=== PATIENT | male | born 1945 | race Caucasian/White ===

== ENCOUNTER → 2023-04-20 | Outpatient (CLI) | payer MEDICARE, OTHER, SELFPAY ==
--- NOTE | 2023-04-20 09:38 | CT_ITS ---
STUDY: CT ABDOMEN AND PELVIS WITHOUT CONTRAST REASON FOR EXAM: Male, 77 years old. GROSS HEMATURIA RADIATION DOSAGE (If Supplied By Facility): CTDIvol = ( 14.57 ) mGy, DLP = ( 782.49 ) mGycm TECHNIQUE: Transaxial images were obtained from the dome of the diaphragm to the symphysis pubis without oral contrast, and without intravenous contrast. Sagittal and coronal images were reconstructed. Individualized dose optimization techniques were used for this CT. COMPARISON: None. FINDINGS: The visualized lung bases are unremarkable. Coronary artery calcification. Normal liver. There are surgical clips in the gallbladder fossa consistent with a prior cholecystectomy. There is mild splenomegaly. Normal pancreas. Normal bilateral adrenal glands. Normal right kidney. Normal left kidney. Mild degree of nonspecific bilateral perinephric stranding. Normal visualized stomach. Normal small intestine. There are scattered colonic diverticula consistent with diverticulosis. The appendix is visualized and appears normal. There is scattered atherosclerotic calcification of the abdominal aorta and its major visceral branches, without a demonstrated aneurysm. Normal inferior vena cava. Normal retroperitoneum. Questionable faint polypoid mass in the right lateral wall of the urinary bladder. Endoscopic evaluation is recommended. There is enlargement of the prostate gland. It measures 4.4 cm x 6.9 cm. This causes indentation at the bladder base. There is calcification of the vas deferens. This is usually seen in patients with diabetes. Normal abdominal wall. There are diffuse degenerative changes of the visualized lumbar spine. CT/Abdomen/Pelvis without Cont IMPRESSION: Prostatic enlargement. Findings suggestive of faint polypoid mass arising from the lateral wall of the bladder on the right side. Electronically Signed: Job Luis MD at 10:10 EDT ,
[2023-04-20 09:45] LABS: Anion Gap 3 (5-15); BUN 40 mg/dL (7-18); BUN/Creat Ratio 23.1 RATIO (10-20); Chloride 112 mmol/L (98-107); Creatinine, Serum 1.73 mg/dL (0.70-1.30); EST Glomerular Filtration Rate 41 mL/min (>60); Est Glom Filt Rate - Afr Amer 49 mL/min (>60); Glucose 183 mg/dL (74-106); PSA,Total- Diagnostic 2.67 ng/mL (0.0-4.0); Potassium 4.2 mmol/L (3.5-5.1); Sodium Level 143 mmol/L (136-145)
== END | disposition home or self-care (01) ==
LOC: CT 09:17
PROVIDERS: PCP Preventive Medicine Occupational Medicine; Referring Provider Urology; Visit Provider Urology
DX: R31.0 Gross hematuria (principal)
CPT/HCPCS: 36415; 74176; 80048; 84153

== ENCOUNTER 2023-05-17 10:08 | Day surgery (SDC) | payer MEDICARE, OTHER, SELFPAY ==
[2023-05-10 17:29] LABS: International Normalized Ratio 1.1; Prothrombin Time (Protime)PT. 14.5 SECONDS (11.7-14.9)
[2023-05-10 17:30] LABS: Partial Thromboplast Time 25.9 Seconds (24.1-36.2)
[2023-05-10 17:53] LABS: Hemoglobin A1c 5.8 % (3.8-5.6)
[2023-05-10 18:05] LABS: AST(SGOT) 34 U/L (15-37); Alanine Aminotransfer ALT/SGPT 47 U/L (16-61); Albumin, Serum 3.9 g/dL (3.2-5.0); Alkaline Phosphatase 67 U/L (45-117); Bilirubin, Direct 0.18 mg/dL (0.00-0.30); Globulin 3.1 g/dL (2.2-4.2)
[2023-05-17] VITALS (7 sets, daily range): BP systolic 113–131; BP diastolic 50–62; PULSE 68–77; RESP 16–18; TEMP 36.2–36.9; O2SAT 94–100; BMI 29.0
[2023-05-17] MEDS: Lactated Ringers 1,000 ML 15 ML IV (10:56)
--- NOTE | 2023-05-17 11:08 | PCM.HP.BLA ---
History and Physical Date of Admission: 05/17/23 77 yo male with Gross hematuria just started this past week, he did have a catheter placed during heart surgery which bleed a lot. no h/o prostate, a long time ago PSA was normal. no pain, no h/o bladder cancer, a long time ago had kidney stone. he was on baby aspirin - currently stopped. ALLERGIES: Adhesive tape Mildew Mold Penicillin MEDICATIONS: Allopurinol 100 mg tablet 1 tablet PO Daily Aspirin 81 mg tablet,chewable 1 tablet PO Daily Farxiga 10 mg tablet 1 tablet PO Daily Glimepiride 2 mg tablet 1 tablet PO Daily Icosapent Ethyl 2 PO Daily Losartan Potassium 25 mg tablet 1 tablet PO Daily Magnesium 1 PO Daily Melatonin 1 PO Daily Metoprolol Succinate 25 mg tablet, extended release 24 hr 1 tablet PO Daily Nitroglycerin 0.4 mg tablet, sublingual 1 tablet PO Daily Repatha Sureclick 140 mg/ml pen injector 1 PO every other week Ubiquinol 1 PO Daily Vitamin D3 1 PO Daily PAST SURGICAL HISTORY: Carotid Endarterectomy Cholecystectomy Coronary Artery Bypass Grafting Heart Surgery (Unspecified) Tonsillectomy - 1999 PAST MEDICAL HISTORY: Acute myocardial infarction, unspecified Atherosclerotic heart disease of [place] coronary artery without angina pectoris Benign prostatic hyperplasia with lower urinary tract symptoms Chronic kidney disease, stage 3b Essential (primary) hypertension Gross hematuria Hematuria, unspecified Nocturia Other hyperlipidemia Personal history of urinary calculi Phlebitis and thrombophlebitis of unspecified deep vessels of unspecified lower extremity Right heart failure due to left heart failure Sleep apnea, unspecified Type 2 diabetes mellitus without complications PM Notes: thrombocytopenia Immunizations: None FAMILY HISTORY: Cancer - Runs in Family Diabetes - Runs in Family Heart Disease - Runs in Family SOCIAL HISTORY: Marital Status: Preferred Language: [place]; Ethnicity: Not Or ; Race: White Current Smoking Status: Patient does not smoke anymore. Tobacco Use Assessment Completed: Used Tobacco in last 30 days? Smoking cessation counseling was provided. Does not use smokeless tobacco. Has never drank. Does not use drugs. Does not drink caffeine. Has not had a blood transfusion. REVIEW OF SYSTEMS: Constitutional: Patient denies fever, chills, weight loss, and weight gain. Eyes: Patient reports cataracts. Patient denies blurry vision and glaucoma. Ears, Nose, Mouth, Throat: Patient reports hearing loss, sinus infections, and sleep apnea. Cardiovascular: Patient denies chest pains, swollen ankles, irregular heartbeat, and pacemaker/defib. Respiratory: Patient reports cpap machine. Patient denies shortness of breath, wheezing, and oxygen. Gastrointestinal: Patient denies abdominal pain, diarrhea, constipation, nausea, and vomiting. Genitourinary: Patient reports get up at night to void, blood in the urine, and history of stones. Patient denies frequent urination, urinary retention, urinary incontinence, painful urination, frequent uti's, difficulty starting stream, weak stream/scanty, and bedwetting. Musculoskeletal: Patient reports back pain. Patient denies sore muscles and gout. Integumentary/Skin: Patient denies rash, skin cancer, and chronic itching. Neurological: Patient denies paralysis, stroke/tia, and falling/unsteady. Hematologic/Lymphatic: Patient reports abnormal bleeding. Patient denies blood transfusion, swollen lymph nodes, deep venous thrombosis, and pulmonary embolism. VITAL SIGNS: 04/20/2023 08:36 AM Weight 200 lb / 90.72 kg Height 69 in / 175.26 cm BP 126/74 mmHg BMI 29.5 kg/m? - BMI Counseling was provided. PHYSICAL EXAM: Constitutional: Well-nourished. No physical deformities. Normally developed. Good grooming. Neck: Neck symmetrical, not swollen. Normal tracheal position. Respiratory: No labored breathing, no use of accessory muscles. Cardiovascular: Normal temperature, normal extremity pulses, no swelling, no varicosities. Lymphatic: No enlargement of neck, axillae, groin. Skin: No paleness, no jaundice, no cyanosis. No lesion, no ulcer, no rash. Neurologic / Psychiatric: Oriented to time, oriented to place, oriented to person. No depression, no anxiety, no agitation. Gastrointestinal: No mass, no tenderness, no rigidity, non obese abdomen. Eyes: Normal conjunctivae. Normal eyelids. Ears, Nose, Mouth, and Throat: Left ear no scars, no lesions, no masses. Right ear no scars, no lesions, no masses. Nose no scars, no lesions, no masses. Normal hearing. Normal lips. Musculoskeletal: Normal gait and station of head and neck. Complexity of Data: Source Of History: Patient Lab Test Review: Basic Metabolic Panel (BMP), CBC Records Review: Previous Doctor Records, Previous Hospital Records, Previous Patient Records Urine Test Review: Urinalysis PROCEDURES: Flexible Cystoscopy - 39726 Risks, benefits, and some of the potential complications of the procedure were discussed at length with the patient including infection, bleeding, voiding discomfort, urinary retention, fever, chills, sepsis, and others. All questions were answered. Informed consent was obtained. Antibiotic prophylaxis was given. Sterile technique and intraurethral analgesia were used. Meatus: Normal size. Normal location. Normal condition. Urethra: No strictures. External Sphincter: Normal. Verumontanum: Normal. Prostate: Moderate hyperplasia. Non-obstructing. Bladder Neck: Non-obstructing. Ureteral Orifices: Normal location. Normal size. Normal shape. Effluxed clear urine. Bladder: very blood I would a one tumor in the back of bladder suspect may have others Given antibiotic 1 dose per protocol Urinalysis - 17341 Dipstick Dipstick Cont'd Specimen: Voided Blood: about 250 Appearance: Clear Protein: Neg Color: Yellow Urobilinogen: Neg Glucose: Normal Nitrites: Neg Bilirubin: Neg Leukocyte Esterase: Neg Ketones: Neg ASSESSMENT: ICD-10 Details 1 Gross hematuria - R31.0 Acute, Systemic Symptoms 2 Benign prostatic hyperplasia with lower urinary tract symptoms - N40.1 Acute, Systemic Symptoms 3 Encounter for screening for malignant neoplasm of prostate - Z12.5 Acute, Systemic Symptoms PLAN: Orders Labs Basic Metabolic Panel (BMP), PSA X-Rays: C.T. Abdomen/Pelvis Without I.V. Contrast Schedule Document Letter(s): Created for Patient: Clinical Summary Notes: CT scan stone protocol today work up for hematuria then come back to office and will do cysto today. check PSA and blood work cTscan appears might be a tumor in bladder on Cyst v bloody and do see a tumor in the bladder but could not see all bladder bc v bladder. Plan for a TURBT and mitomycin C
--- NOTE | 2023-05-17 11:09 | DCINST_ITS ---
Discharge Instructions Diet Discharge Diet: No restrictions Activity Discharge Activity: Return to Normal Activity and May Not Drive (while taking narcotic pain medications.) Dressing / Incision Call your doctor if you observe: Fever of 101 or Higher Follow Up Care Please Follow Up With: Michel No MD When: Call [phone] for an appointment Test Results: Test results from this visit will be discussed in further detail at your follow- up appointment, if applicable. Discharge Plan Admission Attending Provider: Michel No Primary Care Provider: Charlie Macdonald Consulting Providers: Angel Nance Discharge Orders/Prescriptions Prescriptions: No Action nitroglycerin 0.4 mg tablet, sublingual 0.4 mg SUBLINGUAL ONCE Rx Instructions: as a single dose; administer 5-10 minutes before situation known to precipitate angina attack losartan 25 mg tablet 25 mg PO QHS metoprolol succinate 25 mg tablet extended release 24 hr 25 mg PO 1600 icosapent ethyl 1 gram capsule 2 g PO BID Repatha SureClick 140 mg/mL pen injector 140 mg SUBCUT .Q2W Patient Comments: INJECT SUBCUTANEOUSLY EVERY 2 WEEKS. ROTATE INJECTION SITES allopurinol 100 mg tablet 100 mg PO DAILY Patient Comments: TAKE 1 TABLET BY MOUTH EVERY DAY aspirin 81 mg tablet,delayed release (DR/EC) 81 mg PO .QOD glimepiride 2 mg tablet 2 mg PO QHS Farxiga 5 mg tablet 10 mg PO DAILY phenazopyridine 200 mg tablet 200 mg PO PRN PRN (Reason: urinary retention) Patient Comments: take 1 tablet by mouth three times a day if needed for URINARY DISCOMFORT Referrals / Follow Up: Charlie Macdonald DO [Primary Care Provider] - Disposition Disposition (needs filled in before D/C Order can be placed): Home, Self Care
[2023-05-17 11:28] LABS: Bedside Glucose 124 mg/dL (74-106)
[2023-05-17] MEDS: Cefazolin 2 GM in 0.9% Normal Saline (100mL Bag) 100 ML IV (11:32)
[2023-05-17] MEDS: MitoMYcin 40 MG in Syringe 1 EACH 2400 MG INSTILLAT (12:18)
--- NOTE | 2023-05-17 12:19 | OP.PCM_ITS ---
Report of Operation Date of Procedure: 05/17/23 Pre-Operative Diagnosis: Bladder tumor bleeding Post-Operative Diagnosis: The same Surgery/Procedure Performed:: Transurethral resection of a large bladder tumor instillation of Mitomycin-C Description of Surgical Findings:: Patient was taken back to the operating room at a smooth induction of general anesthesia he was placed in dorsolithotomy position. Penis and testicles were prepped and draped in usual sterile fashion went into the bladder with a 21 [place] rigid cystourethroscope on cystoscopy and found to have a large papillary tumor coming from the patient's right lateral anterior wall of the bladder tumor on measurement by cystoscopy measured 5 cm x 4 cm x 4 cm occupying the right lateral wall of the bladder fairly large but it looks like it came from stock it did not look invasive fortunately. I then switched over to the resectoscope and then I resected this tumor completely down to the base and again it did not look invasive it looks like I got into muscle and it was not invasive and the muscle and then around the base of the site also extensive amount of tumor like in the wall lining this was about 5 x 5 cm by half a millimeter extensive tumor that was all along the wall and was cauterized this extensively using the button after this was taken care of then all the tumor chips were removed out of the bladder Manny extensively get all the tumors out and then we put a catheter and put Mitomycin-C into the bladder for postresection treatment and then he will go home with a catheter let the resection he will see him next week for catheter removal Surgeon: Michel No Type of Anesthesia: General Drains: sanches Estimated Blood Loss (mL): 5 Admit VTE Documentation VTE Present on Admission: No VTE Mechan Device Prophylaxis: SCD's VTE Pharm Prophylaxis ordered?: No
--- NOTE | 2023-05-17 12:36 | BLA_PTH ---
PATIENT: JUSTIN TORRES LOC: [facility] [place] U#:[id number] AGE/SX: 77/M ROOM: RE05/17/[address]: Dr. Michel No MD : [id number] BED: DIS: 05/17/2023 SPEC #: [id number] RECD: 05/17/23 14:03 STATUS: CLARIBEL RECeli #: [id number] YAYA: 05/17/23 12:[address]: Michel No DEPT: SURGICAL PATHOLOGY RECD BY: Deanna Thomson ENTERED: 05/18/23 09:08 SP TYPE: BLADDER BX OTHR DR: MD Dr. Charlie Avalos DO Tissues: Urinary bladder, NOS Procedures: Surgery Specimen Level V HEADER OPERATION: Cysto, transurethral resection, bladder with Olympus PRE-OP DIAGNOSIS: Gross hematuria, BPH with lower urinary tract symptoms, screening TISSUE SUBMITTED: Bladder tumor MICROSCOPIC DIAGNOSIS Bladder tumor, transurethral resection: Papillary urothelial carcinoma, noninvasive. See cancer summary in the comment section. SJ:rg 05/19/2023 COMMENT BLADDER CANCER (TUR) SUMMARY Procedure: Transurethral resection of bladder tumor (TURBT) Tumor site: Not specified Histologic type: Papillary urothelial carcinoma, noninvasive Associated epithelial lesions: None identified Histologic grade: High grade (3/3) Tumor configuration: Papillary Muscularis propria presence: Muscularis propria (detrusor muscle) is present and free of tumor. Lymphvascular invasion: Not identified Tumor extension: Noninvasive papillary carcinoma. Additional pathologic findings: Numerous blood clots and chronic inflammation. 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 Case has been reviewed in consultation with Dr. Talbot who concurs with the above diagnosis. IDC:AM MICROSCOPIC DESCRIPTION Slides are reviewed. GROSS DESCRIPTION Received in fixative is one container labeled with the patient's name and designated bladder tumor. The specimen consists of multiple irregular fragments of brown soft tissue mixed with blood clot that in aggregate measure 5.0 x 3.0 x 0.3 cm. The specimen is totally submitted in two cassettes. / MARIPOSA:wellington 05/18/2023 TC:0 CPT: 27246
[2023-05-17 12:58] LABS: Bedside Glucose 114 mg/dL (74-106)
== END 2023-05-17 14:46 | disposition home or self-care (01) ==
LOC: SDC 10:09 → AC 10:10
PROVIDERS: Anesthesiology; PCP Preventive Medicine Occupational Medicine; Visit Provider Urology
PROC: 0T5B8ZZ Destruction of Bladder, Via Natural or Artificial Opening Endoscopic (ICD-10-PCS; CPT 51720; principal; 2023-05-17 12:25)
DX: C67.3 Malignant neoplasm of anterior wall of bladder (principal); I13.0 Hypertensive heart and chronic kidney disease with heart failure and stage 1 through stage 4 chronic kidney disease, or unspecified chronic kidney disease; I50.9 Heart failure, unspecified; E11.22 Type 2 diabetes mellitus with diabetic chronic kidney disease; N18.32 Chronic kidney disease, stage 3b; I25.10 Atherosclerotic heart disease of native coronary artery without angina pectoris; R31.0 Gross hematuria; N40.1 Benign prostatic hyperplasia with lower urinary tract symptoms; G47.30 Sleep apnea, unspecified; Z79.84 Long term (current) use of oral hypoglycemic drugs; Z79.899 Other long term (current) drug therapy; Z79.82 Long term (current) use of aspirin; Z95.1 Presence of aortocoronary bypass graft; Z87.891 Personal history of nicotine dependence; Z86.718 Personal history of other venous thrombosis and embolism
CPT/HCPCS: 52250; 00910; 36415; 80076; 82962; 83036; 85610; 85730; 88305; 88307; J7120; J9280; J2405

== ENCOUNTER → 2023-07-06 | Outpatient (CLI) | payer MEDICARE, OTHER, SELFPAY | END | disposition home or self-care (01) | PROVIDERS: PCP Preventive Medicine Occupational Medicine; Visit Provider Urology | DX: R30.0 Dysuria (principal) | CPT/HCPCS: 87077; 87086; 87088; 87186 ==

== ENCOUNTER → 2023-07-13 | Outpatient (CLI) | payer MEDICARE, OTHER, SELFPAY ==
--- OUTSIDE RECORDS SUMMARY | 2023-07-13 15:32 | XMS RPT_ITS | CCD ---
Author Name Unknown Address [address] [place] [address] Organization [facility] Care Team Providers Care Self Pay Representative Name Role Phone Ruthy Mishra MD Unavailable [employer] Unavailable Ruthy Mihsra MD Unavailable [phone] DAVID MACDONALD DO Primary Care Physician ([phone]) Erica PT, Debbie Unavailable Unavailable DAVID MACDONALD DO Primary Care Physician ([phone]) Unavailable Primary Care Provider UnavailDavid Antonio DO Primary Care Provider Jerry Rodríguez MD Unavailable JERRY RODRÍGUEZ Referring Unavailable DAVID MACDONALD Primary Care Unavailable JERRY RODRÍGUEZ Referring Unavailable DAVID MACDONALD Primary Care Unavailable JERRY RODRÍGUEZ Attending Unavailable DAVID MACDONALD DO Primary Care Unavailable DR JADON HALL MD Attending Unavailab DAVID Felder DO Primary Care Unavailable IMSAEL CABRERA MD Attending Unavailable DAVID MACDONALD DO Primary Care Unavailable MISAEL CABRERA MD Attending Unavailable DAVID MACDONALD DO Primary Care Unavailable DR JADON HALL MD Attending Unavailab DAVID Felder DO Primary Care Unavailable LEONOR RONAK-LISA BALDWIN Attending Smita vailable DAVID MACDONALD DO Primary Care Unavailable DR JADON HALL MD Attending Unavailab DAVID Felder DO Primary Care Unavailable OWDR MALIK SOARES DO Attending UnavailDAVID Antonio DO Primary Care Unavailable 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[employer]AMAL Attending Unavailab le Allergies Allergy Classification Reported Allergen(s) Allergy Type Date of Onset Reaction(s) Facility (4 sources) atorvastatin drug allergy 7 weak legs [facility] Work Phone: (16 sources) penicillin v drug allergy 7 [facility] Work Phone: (11 sources) Adhesive Tape Allergy to substance [facility] (11 sources) Mold Extract Drug Allergy [facility] (11 sources) Penicillin; Translations: [penicillin] Drug Allergy [facility] (11 sources) Mildew Allergy to substance [facility] (4 sources) Adhesive Tape; Translations: [ADHESIVE TAPE (ROSINS)] Allergy to substance 3 Rash [facility] Work Phone: (4 sources) Penicillins; Translations: [PENICILLINS] Drug Allergy 3 Unknown [facility] Work Phone: Medications Current Medications Medication Drug Class(es) Dates Sig (Normalized) Sig (Original) Co-Q10 100 mg oral capsule (9 sources) Start: 11-23-2020 Co-Q10 100 mg oral capsule Dose : 200 mg = 2 cap(s), Oral, Daily, 0 Refill(s) Start Date: 11/23/20 Status: Ordered ubidecarenone 100 mg oral capsule (18 sources) Start: 11-23-2020 Co-Q10 100 mg oral capsule Dose : 200 mg = 2 cap(s), Oral, Daily, 0 Refill(s) Start Date: 11/23/20 Status: Ordered Completed/Discontinued Medications Medication Drug Class(es) Dates Sig (Normalized) Sig (Original) allopurinol 100 mg oral tablet (7 sources) Xanthine Oxidase Inhibitor Start: 03-17-2023 take 1 tablet by mouth once allopurinol (ZYLOPRIM) 100 mg tablet Take 1 tablet by mouth every afternoon. 0 03/17/2023 Active Problems Active Problems Problem Classification Problem Date Documented Da te Episodic/Chronic Chronic kidney disease (20 sources) Chronic kidney disease stage 3; Translations: [Anemia of chronic renal failure] 01-02-2020 Chronic Past or Other Problems Problem Classification Problem Date Documented Da te Episodic/Chronic Abdominal pain (16 sources) Acute abdominal pain; Translations: [Unspecified abdominal pain] Onset: 03-03-2017 03-03-2017 Episodic Biliary tract disease (20 sources) Calculus of gallbladder with acute cholecystitis; Translations: [Calculus of gallbladder with cholecystitis] Onset: 03-03-2017 03-03-2017 Episodic Unclassified (4 sources) Ankle edema; Translations: [Localized edema] Onset: 03-13-2017 03-14-2017 Episodic Results Test Name Value Interpretation Reference Range Facil ity Vital Signs Date Time Vital Sign Value Performing Clinician Facility 03-30-2023 14:45-0400 Body height 173.5 cm Jerry Rodríguez MD Work Phone: [facility] 03-30-2023 14:45-0400 Body temperature 98.8 [degF] Jerry Rodríguez MD Work Phone: [facility] 03-30-2023 14:45-0400 Body weight 92.99 kg Jerry Rodríguez MD Work Phone: [facility] 03-30-2023 14:45-0400 Diastolic blood pressure 80 mm[Hg] Jerry Rodríguez MD Work Phone: [facility] 03-30-2023 14:45-0400 Heart rate 78 /min Jerry Rodríguez MD Work Phone: [facility] 03-30-2023 14:45-0400 SaO2% (BldA) [Mass fraction] 98 % Jerry Rodríguez MD Work Phone: [facility] 03-30-2023 14:45-0400 Systolic blood pressure 131 mm[Hg] Jerry Rodríguez MD Work Phone: [facility] 03-13-2017 15:38-0400 BMI (Body Mass Index) 34.01 kg/m2 Ruthy Mishra MD [facility] Work Phone: 03-13-2017 15:38-0400 Height 165.1 cm Ruthy Mishra MD [facility] Work Phone: 03-13-2017 15:38-0400 Respiratory Rate 16 /min Ruthy Mishra MD [facility] Work Phone: 03-13-2017 15:38-0400 Weight 92.72 kg Ruthy Mishra MD [facility] Work Phone: 03-09-2017 06:45-0400 Body surface area Derived from formula 67.13 mL/min [facility] Work Phone: 03-08-2017 07:06-0400 Body surface area Derived from formula 67.13 mL/min Ruthy Mishra MD [facility] Work Phone: 03-03-2017 11:28-0400 BMI (Body Mass Index) 39.41 kg/m2 Ruthy Mishra MD [facility] Work Phone: 03-03-2017 11:28-0400 Body Temperature 99.7 [degF] Ruthy Mishra MD [facility] Work Phone: 03-03-2017 11:28-0400 BP Diastolic 73 mm[Hg] Ruthy Mishra MD [facility] Work Phone: 03-03-2017 11:28-0400 BP Systolic 140 mm[Hg] Ruthy Mishra MD [facility] Work Phone: 03-03-2017 11:28-0400 Height 152.4 cm Ruthy Mishra MD [facility] Work Phone: 03-03-2017 11:28-0400 Pulse (Heart Rate) 110 /min Ruthy Mishra MD [facility] Work Phone: 03-03-2017 11:28-0400 Respiratory Rate 18 /min Ruthy Mishra MD [facility] Work Phone: 03-03-2017 11:28-0400 Weight 91.54 kg Ruthy Mishra MD [facility] Work Phone: Encounters Encounter Date Encounter Type Care Provider Facility Start: 05-01-2023 Orders Only Jerry wilson MD Work Phone: Hematology/Oncology Procedures Date Procedure Procedure Detail Performing Clinician Start: 04-10-2023 Us abdominal real ti me w/image limited Jerry Rodríguez MD Work Phone: Start: 05-20-2020 Frances MACDONALD DO Plan of Treatment Date Care Activity Detail Author Start: 03-17-2023 Covid-19 Vaccine () Covid-19 Vaccine () [facility] Start: 03-17-2023 Influenza vaccination [facility] Start: 07-17-2022 ADVANCE DIRECTIVE DISCUSSION ADVANCE DIRECTIVE DISCUSSION [facility] Start: 07-17-2022 DEPRESSION ASSESSMENT DEPRESSION ASSESSMENT [facility] Start: 02-22-2021 Covid-19 Vaccine (3 - Moderna series) Covid-19 Vaccine (3 - Moderna series) [facility] Start: 03-27-2017 End: 03-27-2017 Appointment Appointment [facility] Work Phone: Start: 03-27-2017 End: 03-27-2017 Follow-up visit Follow Up as needed [facility] Work Phone: Start: 03-13-2017 End: 03-13-2017 Appointment Appointment [facility] Work Phone: Start: 03-13-2017 End: 03-14-2017 Follow Up Appt 2 weeks Follow Up Appt 2 weeks [facility] Work Phone: Start: 03-03-2017 End: 03-03-2017 Appointment Appointment [facility] Work Phone: Start: 03-03-2017 End: 03-07-2017 *CBC with Differential *CBC with Differential [facility] Work Phone: Start: 03-03-2017 End: 03-07-2017 *CMP Complete Metabolic Panel *CMP Complete Metabolic Panel [facility] Work Phone: Start: 03-03-2017 End: 03-07-2017 Bilirubin (direct) *Bilirubin-Direct [facility] Work Phone: Start: 03-03-2017 End: 03-06-2017 Follow Up Appt Other Follow Up Appt Other [facility] Work Phone: Start: 07-17-2008 Pneumococcal Vaccine: 65+ (2 - PPSV23 or PCV20) Pneumococcal Vaccine: 65+ (2 - PPSV23 or PCV20) [facility] Start: 2008 Pneumococcal Vaccine: 65+ (1 - PCV) Pneumococcal Vaccine: 65+ (1 - PCV) [facility] Start: 2008 PNEUMOCOCCAL: 65+ (1 - PCV) PNEUMOCOCCAL: 65+ (1 - PCV) [facility] Start: 2003 RSV Vaccine (1 - 1-dose 60+ series) RSV Vaccine (1 - 1-dose 60+ series) [facility] Start: 1993 SHINGRIX VACCINE (1 of 2) SHINGRIX VACCINE (1 of 2) [facility] Start: 1988 DIABETES SCREEN DIABETES SCREEN [facility] Start: 1988 Diabetes Screening Diabetes Screening [facility] Start: 1962 Urine microalbumin profile [facility] Start: 01-03-1944 COVID-19 VACCINE (#1) COVID-19 VACCINE (#1) [facility] End: 04-28-2024 US ABD RIGHT UPPER QUADRANT US ABD RIGHT UPPER QUADRANT Radiology Routine Thrombocytopenia (HCC) 1 Occurrences starting 03/30/2023 until 04/28/2024 [facility] Work Phone: Immunizations Immunization Date Immunization Notes Care Provider Paula walsh 12-28-2020 COVID-19, mRNA, LNP- S, PF, 100 mcg/ 0.5 mL dose; Translations: [Moderna COVID-19 Vaccine] DAVID MACDONALD DO [facility] 11-30-2020 COVID-19, mRNA, LNP- S, PF, 100 mcg/ 0.5 mL dose; Translations: [Moderna COVID-19 Vaccine] DAVID MACDONALD DO [facility] 05-23-2008 influenza virus vaccine, unspecified formulation Jerry Rodríguez MD Work Phone: [facility] Payers Date Payer Category Payer Private Health Insurance [employer] PPO [id number] 2022-Present [phone] [address] [place] [address] PPO [id number] 2022 Private Health Insurance [id number] 2008 Medicare MEDICARE MEDICAR E A AND B [id number] 2008-Present [phone] [place] [address] Medicare [id number] 2008 Medicare [id number] 1943 Unknown [id number] 1943 Unknown [id number] 1943 Unknown [id number] 1943 Unknown [id number] 1943 Unknown [id number] 1943 Unknown [id number] 1943 Unknown [id number] 1943 Unknown [id number] Social History Date Type Detail Facility Start: 05-19-2020 End: 03-30-2023 Ex-smoker (finding) [facility] Sex Assigned At Male [facility] Tobacco smoking status NHIS Tobacco smoking consumption unknown [facility] Work Phone: Start: 1945 Sex Assigned At Not on file [facility] Start: 03-30-2023 Gender identity Not on file [facility] History of tobacco use Current smoker [facility] Work Phone: History of tobacco use Cigarette Smoker [facility] Work Phone: Start: 03-30-2023 Tobacco use and exposure Smokeless tobacco non-user [facility] Work Phone: Start: 03-30-2023 Alcohol intake Lifetime non-d aliya (finding) [facility] Start: 03-30-2023 History of Social function [facility] National Score (1-100), lower number is lower risk 60 [facility] Clinical Notes 03-23-2023 to 05-01-2023 Jerry Rodríguez MD - 05/01/2023 9:47 AM EDTBella Fuentes [facility] - 04/10/2023 1:00 PM Jerry Vicente MD - 03/30/2023 3:04 PM EDTTelephone [facility] - Fatemeh An - 03/23/2023 3:31 PM EDT Note Date & Type Note Facility 05-01-2023 Note HNO ID: [id number] Author: Jerry Rodríguez MD Service: ? Author Type: Physician Type: Progress Notes Filed: 05/01/2023 9:55 AM Note Text: Called patient re abd US, Had hematuria after the US, saw urology. Discussed renal cyst, he had a CT abd, was ok. We will hold ogg on renal US, he'll follow with urology. Jerry Rodríguez MD May 01, 2023 [facility] 05-01-2023 History of Presen t illness Narrative Called patient re abd US, Had hematuria after the US, saw urology. Discussed renal cyst, he had a CT abd, was ok. We will hold ogg on renal US, he'll follow with urology. Jerry Rodríguez MD May 01, 2023 documented in this encounter [facility] 04-10-2023 Note HNO ID: [id number] Author: Bella Fuentes RDMS Service: ? Author Type: Alarm Operator Type: Progress Notes Filed: 04/10/2023 2:40 PM Note Text: Radiology Service Progress Note PATIENT NAME: Gage Bullock DATE OF SERVICE: April 10, 2023 TIME: 2:40 PM PATIENT IDENTITY VERIFICATION COMPLETED USING TWO (2) IDENTIFIERS: Name and Date of confirmed by patient verbally. FALL SCREENING: Has the patient had 2 falls in the last year or 1 fall with injury or currently using an Ambulatory Assistive Device (Walker, Cane, Wheelchair, Crutches, etc.)? No PATIENT GENDER DATA: Male PATIENT RELEVANT IMPLANT DATA REVIEWED: Not Applicable RADIOLOGY DEPARTMENT: Ultrasound PERIPHERAL IV DATA: Not applicable SIGNED BY: Bella Fuentes RDMS RVT April 10, 2023 2:40 PM [facility] 04-10-2023 History of Presen t illness Narrative Radiology Service Progress Note PATIENT NAME: Gage Bullock DATE OF SERVICE: April 10, 2023 TIME: 2:40 PM PATIENT IDENTITY VERIFICATION COMPLETED USING TWO (2) IDENTIFIERS: Name and Date of confirmed by patient verbally. FALL SCREENING: Has the patient had 2 falls in the last year or 1 fall with injury or currently using an Ambulatory Assistive Device (Walker, Cane, Wheelchair, Crutches, etc.)? No PATIENT GENDER DATA: Male PATIENT RELEVANT IMPLANT DATA REVIEWED: Not Applicable RADIOLOGY DEPARTMENT: Ultrasound PERIPHERAL IV DATA: Not applicable SIGNED BY: Bella Fuentes RDMS RVT April 10, 2023 2:40 PM documented in this encounter [facility] 03-30-2023 Note HNO ID: [id number] Author: Jerry Rodríguez MD Service: ? Author Type: Physician Type: Progress Notes Filed: 03/30/2023 3:59 PM Note Text: HISTORY OF PRESENT ILLNESS: Gage Bullock is a 77 year old male h/o mild thrombocytopenia, followed at [place], bone marrow biopsy 2018 was normal. Platelets 91 at that time. No bleeding problems. 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 US liver spleen 2. Follow cbc, q 4-6 months Written and verbal health teaching given to patient, patient verbalizes understanding and agrees with treatment plan. PAST MEDICAL HISTORY Diagnosis Date Diabetes mellitus (HCC) Essential hypertension Thrombocytopenia, unspecified (HCC) PAST SURGICAL HISTORY Procedure Laterality Date PAST SURGICAL HISTORY OF 2018 Triple bipass REMOVAL GALLBLADDER 2017 REPAIR OF NASAL SEPTUM TONSILLECTOMY AND ADENOIDECTOMY as a child FAMILY HISTORY Problem Relation Age of Onset Diabetes Mother Heart disease Mother Social History Tobacco Use Smoking status: Former Types: Cigarettes Smokeless tobacco: Never Substance Use Topics Alcohol use: Never Drug use: Never ALLERGIES: ALLERGIES Allergen Reactions Penicillins Unknown Pt has not had reaction but Mother was very allergic Tape [Adhesive Tape* Rash CURRENT OUTPATIENT MEDICATIONS: icosapent ethyl (VASCEPA) 1 gram capsule 2 tablets twice daily metoprolol succinate ER (TOPROL XL) 25 mg 24 hr tablet once daily. losartan (COZAAR) 25 mg tablet once daily. REPATHA SURECLICK 140 mg/mL pen injector INJECT SUBCUTANEOUSLY EVERY 2 WEEKS. ROTATE INJECTION SITES glimepiride (AMARYL) 2 mg tablet 2 tablets with evening meal FARXIGA 10 mg tablet once daily. allopurinol (ZYLOPRIM) 100 mg tablet Take 1 tablet by mouth every afternoon. aspirin 81 mg cap 81 mg once daily. ubidecarenone/vitamin E mixed (COQ10 SG 100 ORAL) 200 mg once daily. melatonin 1 mg tablet 3 mg daily at bedtime. MAGNESIUM ORAL once daily. cholecalciferol, vitamin D3, (VITAMIN D3 ORAL) 2,000 Units once daily. OTC NUTRITIONAL SUPPLEMENT once daily. R Lipoic Acid OTC NUTRITIONAL SUPPLEMENT once daily. Astaxanthin and Zeaxanthin 4mg each OTC NUTRITIONAL SUPPLEMENT once daily. Milk thistle liver detox Calcium Citrate-Vitamin D2 315 mg-5 mcg (200 unit) tab Take 1 tablet by mouth once daily. Lactobac no.41/Bifidobact no.7 (PROBIOTIC-10 ORAL) Take by mouth once daily. OTC NUTRITIONAL SUPPLEMENT once daily. Lycopene 10mg Zinc Gluconate 30 mg tab Take by mouth once daily. OTC PRODUCT daily at bedtime. NAEEM sleep aid 5HTP sleep aid OTC NUTRITIONAL SUPPLEMENT 200 mg once daily. Wilber Wolfe REVIEW OF SYSTEMS: GENERAL: No fever, night sweats, weight loss or malaise. All other reviewed and negative other than HPI. PHYSICAL EXAMINATION: VITAL SIGNS: BP 131/80 Pulse 78 Temp (Src) 98.8 (Temporal) Ht 5' 8.307 (1.74m) Wt 205 lb (93.0kg) SpO2 98% BMI 30.89 kg/(m2). GENERAL APPEARANCE: Well appearing, in no acute distress, alert and oriented x3, well-hydrated, well nourished. SPLEEN: Tip palpable on deep inspiration I spent a total of 45 minutes on the date of the service which included preparing to see the patient, [id number] patient care, completing clinical documentation, obtaining and/or reviewing separately obtained history, performing a medically appropriate examination, ordering medications, tests, or procedures, communicating with other HCPs (not separately reported), independently interpreting results (not separately reported), and communicating results to the patient/family/caregiver. Electronically Signed: Jerry Rodríguez MD March 30, 2023 3:04 PM [facility] 03-30-2023 History of Presen t illness Narrative HISTORY OF PRESENT ILLNESS: Gage Bullock is a 77 year old male h/o mild thrombocytopenia, followed at [place], bone marrow biopsy 2018 was normal. Platelets 91 at that time. No bleeding problems. 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 US liver spleen 2. Follow cbc, q 4-6 months Written and verbal health teaching given to patient, patient verbalizes understanding and agrees with treatment plan. PAST MEDICAL HISTORY Diagnosis Date Diabetes mellitus (HCC) Essential hypertension Thrombocytopenia, unspecified (HCC) PAST SURGICAL HISTORY Procedure Laterality Date PAST SURGICAL HISTORY OF 2018 Triple bipass REMOVAL GALLBLADDER 2017 REPAIR OF NASAL SEPTUM TONSILLECTOMY & ADENOIDECTOMY <AGE 10 as a child FAMILY HISTORY Problem Relation Age of Onset Diabetes Mother Heart disease Mother Social History Tobacco Use Smoking status: Former Types: Cigarettes Smokeless tobacco: Never Substance Use Topics Alcohol use: Never Drug use: Never ALLERGIES: ALLERGIES Allergen Reactions Penicillins Unknown Pt has not had reaction but Mother was very allergic Tape [Adhesive Tape* Rash CURRENT OUTPATIENT MEDICATIONS: icosapent ethyl (VASCEPA) 1 gram capsule 2 tablets twice daily metoprolol succinate ER (TOPROL XL) 25 mg 24 hr tablet once daily. losartan (COZAAR) 25 mg tablet once daily. REPATHA SURECLICK 140 mg/mL pen injector INJECT SUBCUTANEOUSLY EVERY 2 WEEKS. ROTATE INJECTION SITES glimepiride (AMARYL) 2 mg tablet 2 tablets with evening meal FARXIGA 10 mg tablet once daily. allopurinol (ZYLOPRIM) 100 mg tablet Take 1 tablet by mouth every afternoon. aspirin 81 mg cap 81 mg once daily. ubidecarenone/vitamin E mixed (COQ10 SG 100 ORAL) 200 mg once daily. melatonin 1 mg tablet 3 mg daily at bedtime. MAGNESIUM ORAL once daily. cholecalciferol, vitamin D3, (VITAMIN D3 ORAL) 2,000 Units once daily. OTC NUTRITIONAL SUPPLEMENT once daily. R Lipoic Acid OTC NUTRITIONAL SUPPLEMENT once daily. Astaxanthin and Zeaxanthin 4mg each OTC NUTRITIONAL SUPPLEMENT once daily. Milk thistle liver detox Calcium Citrate-Vitamin D2 315 mg-5 mcg (200 unit) tab Take 1 tablet by mouth once daily. Lactobac no.41/Bifidobact no.7 (PROBIOTIC-10 ORAL) Take by mouth once daily. OTC NUTRITIONAL SUPPLEMENT once daily. Lycopene 10mg Zinc Gluconate 30 mg tab Take by mouth once daily. OTC PRODUCT daily at bedtime. NAEEM sleep aid 5HTP sleep aid OTC NUTRITIONAL SUPPLEMENT 200 mg once daily. Wilber Wolfe REVIEW OF SYSTEMS: GENERAL: No fever, night sweats, weight loss or malaise. All other reviewed and negative other than HPI. PHYSICAL EXAMINATION: VITAL SIGNS: BP 131/80 Pulse 78 Temp (Src) 98.8 (Temporal) Ht 5' 8.307 (1.74m) Wt 205 lb (93.0kg) SpO2 98% BMI 30.89 kg/(m^2). GENERAL APPEARANCE: Well appearing, in no acute distress, alert and oriented x3, well-hydrated, well nourished. SPLEEN: Tip palpable on deep inspiration I spent a total of 45 minutes on the date of the service which included preparing to see the patient, [id number] patient care, completing clinical documentation, obtaining and/or reviewing separately obtained history, performing a medically appropriate examination, ordering medications, tests, or procedures, communicating with other HCPs (not separately reported), independently interpreting results (not separately reported), and communicating results to the patient/family/caregiver. Electronically Signed: Jerry Rodríguez MD March 30, 2023 3:04 PM documented in this encounter [facility] 03-23-2023 Miscellaneous Notes Formattin g of this note might be different from the original. Pt scheduled and placed folder in Appointments folder at [facility] desk Records received and given to [facility] for GAS FLOW REGULATOR apt. Hyacinth Bustos LPN Called [facility] and requested records. Hyacinth Bustos LPN Sent fax request for records. Di Patten LPN Patient returned call and stated his previous women's swim coach was Rosibel Garcia at [facility] in [place]. Phone is [phone] and fax is [phone] Referral received for thrombocytopenia. In the PCP note it mentions that pt had a previous women's swim coach. I called pt to please contact us with that name so we could request additional records. Hyacinth Bustos LPN documented in this encounter [facility] Evaluation + Plan note Future Appointments Appointment Date:06/09/2021 04:00:00 PM Scheduled Provider:ROSIBEL GARCIA MD Location:[facility] Appointment Type:[facility] OV Follow Up Appointment Date:11/15/2021 02:15:00 PM Scheduled Provider:DAVID MACDONALD DO Location:[facility] Appointment Type:PC OV Future Scheduled TestsProstate Specific Antigen 04/20/21N-Terminal proBNP 07/07/20N-Terminal proBNP 11/01/21Lipid Profile 07/07/20 [facility] Evaluation + Plan note Future Appointments Appointment Date:11/24/2021 11:30:00 AM Scheduled Provider: Location:[facility] Appointment Type:CV OV Appointment Date:05/17/2022 02:15:00 PM Scheduled Provider:DAVID MACDONALD DO Location:[facility] Appointment Type:PC OV Future Scheduled TestsLactate Dehydrogenase 10/26/21Prostate Specific Antigen 04/20/21Complete Blood Count 10/26/21Complete Metabolic Panel 10/26/21 [facility] Evaluation + Plan note Future Appointments Appointment Date:11/24/2021 11:30:00 AM Scheduled Provider: Location:[facility] Appointment Type:CV OV Appointment Date:05/17/2022 02:15:00 PM Scheduled Provider:DAVID MACDONALD DO Location:[facility] Appointment Type:PC OV Diagnostic Tests PendingPTH, Intact 11/15/21Ferritin 11/15/21 Future Scheduled TestsLactate Dehydrogenase 10/26/21Prostate Specific Antigen 04/20/21Complete Blood Count 10/26/21Complete Metabolic Panel 10/26/21 [facility] Evaluation + Plan note Future Appointments Appointment Date:11/15/2022 02:00:00 PM Scheduled Provider:DAVID MACDONALD DO Location:[facility] Appointment Type:PC OV Future Scheduled TestsLactate Dehydrogenase 10/26/21Complete Blood Count 10/26/21Complete Metabolic Panel 10/26/21 [facility] Evaluation + Plan note Future Appointments Appointment Date:11/24/2022 03:00:00 PM Scheduled Provider:DAVID MACDONALD DO Location:[facility] Appointment Type:PC OV Appointment Date:01/10/2023 11:00:00 AM Scheduled Provider: Location:[facility] Appointment Type:CV OV Future Scheduled TestsLactate Dehydrogenase 10/26/21Complete Blood Count 10/26/21Complete Metabolic Panel 10/26/21 [facility] Evaluation + Plan note Future Appointments Appointment Date:01/10/2023 11:00:00 AM Scheduled Provider: Location:[facility] Appointment Type:CV OV Appointment Date:05/09/2023 02:45:00 PM Scheduled Provider:DAVID MACDONALD DO Location:[facility] Appointment Type:PC OV [facility] Evaluation + Plan note Future Appointments Appointment Date:05/03/2023 03:15:00 PM Scheduled Provider: Location:[facility] Appointment Type:CV OV Appointment Date:11/23/2023 02:30:00 PM Scheduled Provider:DAVID MACDONALD DO Location:[facility] Appointment Type:PC OV Follow Up Future Scheduled TestsIron Level 04/25/23Complete Blood Count 04/25/23Lipid Profile 07/12/23N-Terminal proBNP 07/12/23 [facility] documented in this encounter [facility] note* Diagnosis Renal cyst, 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 documented in this encounter [facility] note* Diagnosis Thrombocytopenia (HCC) Thrombocytopenia, unspecified [facility] Narrative No data available for this section [facility] Hospital Discharge instructions No data available for this section [facility] Progress note No data available for this section [facility] Reason for referral (narrative)* Diagnostic Procedure Only (Routine) - Authorized Specialty Diagnoses / Procedures Referred By Contac t Referred To Contact US IMAGING Diagnoses Thrombocytopenia (HCC) Procedures US ABD RIGHT UPPER QUADRANT US ABDOMINAL REAL TIME W/IMAGE LIMITED Jerry Rodrí[place] [address] [place] [address] [place] [address] Referral ID Status Reason Start Date Expiration Date Visits Requested Visits Authorized [id number] Authorized Auto-Generat ed Referral 03/30/2023 04/28/2024 1 1 [facility] for referral (narrative)* Diagnostic Procedure Only (Routine) - Pending Review Specialty Diagnoses / Procedures Referred By Contac t Referred To Contact US IMAGING Diagnoses Renal cyst, right Procedures US KIDNEY/BLADDER US RETROPERITONEAL REAL TIME W/IMAGE COMPLETE Jerry Rodrí[place]uez [place] [address] [address] [place] [phone] [place] [address] Referral ID Status Reason Start Date Expiration Date Visits Requested Visits Authorized [id number] Pending Review Auto-Generat ed Referral 05/30/2024 1 1 [facility] for referral (narrative)* Diagnostic Procedure Only (Routine) - Closed Specialty Diagnoses / Procedures Referred By Contac t Referred To Contact US IMAGING Diagnoses Thrombocytopenia (HCC) Procedures US ABD RIGHT UPPER QUADRANT US ABDOMINAL REAL TIME W/IMAGE LIMITED Jerry Rodrí[place]uez [place] [id number] [phone] [place] [address] Referral ID Status Reason Start Date Expiration Date V isits Requested Visits Authorized [id number] Closed Auto-Generate d Referral 03/30/2023 04/28/2024 1 1 [facility] Summary Purpose Family History No Family History Records Found Advance Directives No Advanced Directives Records FoundNo Advanced Directives Records Found Additional Source Comments Care Team (unrecognized sect ion and content) Self Pay Representative Relationship Specialty Start Date End Date David Macdonald DO [address] [place] [id number] PCP - General Family Medicine 03/30/23 Jerry Rodríguez MD [address] [place] [address] Hematology/Oncology 03/30/23 Self Pay Representative Relationship Specialty Start Date End Date David Macdonald DO [address] [place] [id number] PCP - General Family Medicine 03/30/23 Jerry Rodríguez MD [address] [place] [address] Hematology/Oncology 03/30/23 Care Team (unrecognized sect ion and content) Care Team Personnel Name: Carola Maldonado Clercaridad Lewis PT 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 Advanced Member Role: Other Name: DAVID MACDONALD DO Position: P4 Physician - Primary Care Member Role: Primary Care Physician Address: Address: [address] [place] [address] Care Team Related Persons Name: CHAPARRITA BULLOCK Address: Home [address] [place], [place] [id number] Care Team Personnel Name: Carola Maldonado Clercaridad Lewis PT 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 Advanced Member Role: Other Name: DAVID MACDONALD DO Position: P4 Physician - Primary Care Member Role: Primary Care Physician Address: Address: [address] [place] [address] Care Team Related Persons Name: CHAPARRITA BULLOCK Address: Home [address] [place] [id number] Source Comments (unrecognize d section and content) In the event this informatio n is protected by the Federal Confidentiality of Alcohol and Drug Abuse Patient Records regulations: The Federal rules restrict any use of the information to criminally investigate or prosecute any alcohol or drug abuse patient.[facility] the event this information is protected by the Federal Confidentiality of Alcohol and Drug Abuse Patient Records regulations: The Federal rules restrict any use of the information to criminally investigate or prosecute any alcohol or drug abuse patient.[facility] the event this information is protected by the Federal Confidentiality of Alcohol and Drug Abuse Patient Records regulations: The Federal rules restrict any use of the information to criminally investigate or prosecute any alcohol or drug abuse patient.[facility] the event this information is protected by the Federal Confidentiality of Alcohol and Drug Abuse Patient Records regulations: The Federal rules restrict any use of the information to criminally investigate or prosecute any alcohol or drug abuse patient.[facility] Reason for Visit (unrecogniz ed section and content) Reason Comments Radiology US Specialty Diagnoses / Procedures Referred By Contac t Referred To Contact US IMAGING Diagnoses Thrombocytopenia (HCC) Procedures US ABD RIGHT UPPER QUADRANT US ABDOMINAL REAL TIME W/IMAGE LIMITED Jerry Rodríguez [place] [id number] [phone] [place] [address] Referral ID Status Reason Start Date Expiration Date V isits Requested Visits Authorized [id number] Closed Auto-Generate d Referral 03/30/2023 04/28/2024 1 1 (unrecognized sect ion and content) No Status Records FoundNo Status Records Found INFORMATION SOURCE (unrecogn ized section and content) DATE CREATED AUTHOR AUTHOR'S ORGANIZ ATION 05/12/2023 [facility] ([place]) FOR RECORDS PERTAINING TO PATIENTS WHO ARE OR HAVE BEEN ENROLLED IN A CHEMICAL DEPENDENCY/SUBSTANCEABUSE PROGRAM, SOME INFORMATION MAY BE OMITTED. This clinical summary was aggregated from multiple sources. Caution should be exercised in using it in the provision of clinical care. This summary normalizes information from multiple sources, and as a consequence, information in this document may materially change the coding, format and clinical context of patient data. In addition, data may be omitted in some cases. CLINICAL DECISIONS SHOULD BE BASED ON THE PRIMARY CLINICAL RECORDS. [employer] provides no warranty or guarantee of the accuracy or completeness of information in this document.
== END | disposition home or self-care (01) ==
LOC: LABSPEC 15:00
PROVIDERS: PCP Preventive Medicine Occupational Medicine; Referring Provider Urology; Visit Provider Urology
DX: R30.0 Dysuria (principal)
CPT/HCPCS: 87086